=== PATIENT | male | born 1955 | race Hispanic/Latino ===

== ENCOUNTER 2022-01-28 17:58 | Emergency (ER) | payer SELFPAY ==
[~2022-01-28] VITALS: Ht 162.6 cm; Wt 79.5 kg
[2022-01-28 18:08] VITALS: BP 129/81
[2022-01-28 18:17] VITALS: BP 128/84
[2022-01-28 18:32] VITALS: BP 133/85
[2022-01-28 18:57] LABS: URINE BILIRUBIN - DIPSTICK NEGATIVE (NEGATIVE); URINE BLOOD DIPSTICK NEGATIVE (NEGATIVE); URINE COLOR YELLOW; URINE GLUCOSE - DIPSTICK NEGATIVE (NEGATIVE); URINE KETONE NEGATIVE (NEGATIVE); URINE LEUK ESTERASE NEGATIVE (NEGATIVE); URINE PROTEIN - DIPSTICK NEGATIVE (NEG-TRACE); URINE SPECIFIC GRAVITY 1.015
[2022-01-28 18:58] LABS: URINE NITRITE - DIPSTICK NEGATIVE (Negative)
[2022-01-28] MEDS ORDERED: VOLTAREN75 MG PO (19:40)
[2022-01-28] MEDS ORDERED: ORPHENADRINE100 MG PO (19:40)
[2022-01-28 19:48] VITALS: BP 133/85
== END 2022-01-28 19:58 | disposition home or self-care (01) | DRG 563 ==
LOC: ED 17:58
PROVIDERS: Family Medicine
DX: S29.012A Strain of muscle and tendon of back wall of thorax, initial encounter (principal); X50.0XXA Overexertion from strenuous movement or load, initial encounter; Y93.89 Activity, other specified; Y92.009 Unspecified place in unspecified non-institutional (private) residence as the place of occurrence of the external cause